=== PATIENT | female | born 1940 ===

== ENCOUNTER 2017-11-13 08:39 | Emergency (ER) | payer OTHER ==
[~2017-11-13] VITALS: Ht 152.4 cm; Wt 72.6 kg
[2017-11-13] MEDS ORDERED: LANTUS SOL100 UNIT/1 SUBCUTANEO (08:49)
[2017-11-13] MEDS ORDERED: METOPROLOL SUCC25 MG PO (08:50)
[2017-11-13] MEDS ORDERED: HUMALOG100 UNIT/1 SQ (08:50)
== END 2017-11-13 12:54 | disposition home or self-care (01) ==
LOC: ER 08:39
DX: M54.5 Low back pain (principal)

== ENCOUNTER → 2018-01-08 | Emergency (ER) | payer OTHER ==
[~2018-01-08] VITALS: Ht 154.9 cm; Wt 74.8 kg
[~2018-01-08] MED LIST: HUMALOG100 UNIT/1 SQ; LANTUS SOL100 UNIT/1 SUBCUTANEO; METOPROLOL SUCC25 MG PO; PEPCID40 MG PO
== END ==
LOC: ER 01:11
DX: R10.13 Epigastric pain (principal)

== ENCOUNTER 2018-01-24 02:18 | Emergency (ER) | payer OTHER ==
[~2018-01-24] VITALS: Ht 154.9 cm; Wt 72.6 kg
[2018-01-24] MEDS ORDERED: BACTRIM DS TAB1 EACH PO (11:33)
[2018-01-24] MEDS ORDERED: PROTONIX40 MG PO (11:33)
== END 2018-01-24 13:05 | disposition home or self-care (01) ==
LOC: ER 02:18
DX: R10.13 Epigastric pain (principal)

== ENCOUNTER → 2019-07-17 | Outpatient (CLI) | payer OTHER ==
[~2019-07-17] MED LIST changes: +BACTRIM DS TAB1 EACH PO; +PROTONIX40 MG PO
== END | disposition home or self-care (01) ==
LOC: TOM 07-15 09:00
DX: G30.1 Alzheimer's disease with late onset (principal)